=== PATIENT | female | born 1985 | race African-American/Black ===

== ENCOUNTER 2023-08-16 18:51 | Observation (INO) | payer BC, SELFPAY ==
[2023-08-16] VITALS (24 sets, daily range): BP systolic 100–126; BP diastolic 55–76; PULSE 75–105; RESP 16–22; TEMP 36.6–36.9; O2SAT 95–100
--- NOTE | ~2023-08-16 | CT_ITS ---
EXAMINATION: CT abdomen pelvis wo con DATE: 08/16/2023 21:00 INDICATION: flank pain eval for stone TECHNIQUE: Computed tomography (CT) of the abdomen and pelvis was performed without intravenous contr ast. Automated exposure control and iterative reconstruction technique were employed. The dose-length product was 797.17 mGy-cm. COMPARISON: None. FINDINGS: Lower thorax: Unremarkable Liver: Normal. Biliary/Gallbladder: Gallbladder is normal. No bile duct dilation. Pancreas: No mass or duct dilation. Spleen: Normal. Adrenals:No mass. Kidneys: No suspicious mass, obstructing stone, or hydronephrosis. Punctate nonobstructing right uppe r pole calcification. Simple right upper pole cyst. GI tract: No small or large bowel dilation. Normal appendix. Mesentery/Peritoneum: No ascites, mass, or free air. Retroperitoneum: No mass. Pelvis: Empty urinary bladder. Retroverted uterus. Normal bilateral ovaries. 3.5 cm simple right ovar sterling cyst which requires no additional evaluation at this time. Soft Tissues: Small, uncomplicated, fat-containing umbilical hernia. Bones: No acute osseous finding. IMPRESSION: No acute process detected in the abdomen or pelvis. Reviewed, dictated and finalized at location K.
--- NOTE | ~2023-08-16 | US_ITS ---
EXAMINATION: US pelvic complete DATE: 08/17/2023 08:48 INDICATION: Vaginal bleeding. Ovarian cyst. TECHNIQUE: Multiple transabdominal sonographic images of the pelvis were obtained. COMPARISON: CT abdomen and pelvis 08/16/2023 FINDINGS: The uterus measures 9.7 x 5.3 x 7.2 cm. There is no free fluid in the pelvis. The endometrial complex measures 8 mm in thickness. The right ovary measures 4.7 x 2.1 x 2.3 cm. The left ovary measures 4.5 x 2.4 x 2.5 cm. There is a 2.4 cm dominant follicle in left ovary. There is normal vascular flow in the ovaries. IMPRESSION: 1. Normal pelvis. Reviewed, dictated and finalized at location E. IMPRESSION: 1. Normal pelvis.
[2023-08-16 20:37] LABS: Basophils Absolute Auto 0.1 K/mm3 (0.0-0.1); Basophils Percent Auto 0.5 % (0.2-1.2); Eosinophils Absolute Auto 0.4 K/mm3 (0-0.3); Eosinophils Percent Auto 4.2 % (0-4.4); Immature Granulocyte Absolute 0.38 K/mm3 (0.00-0.031); Immature Granulocyte Percent A 3.6 % (0-0.5); Immature Platelet Fraction Pct 5.7 % (0.9-11.2); Lymphocytes Absolute Auto 3.37 K/mm3 (0.9-3.2); Lymphocytes Percent Auto 31.8 % (18.3-44.2); Mean Corpuscular HGB Conc 26.4 g/dl (32-36); Mean Corpuscular Hemoglobin 15.3 pg (26-34); Mean Corpuscular Volume 58.1 fl (80-100); Monocytes Absolute Auto 1.3 K/mm3 (0.1-0.6); Monocytes Percent Auto 11.8 % (2.6-8.5); Neutrophils Absolute Auto 5.1 K/mm3 (1.3-6.7); Neutrophils Percent Auto 48.1 % (45.5-73.1); Platelet Count Result 166 k/mm3 (150-375); Red Blood Count 3.46 M/mm3 (4.2-5.4); Red Cell Distribution Width 21.7 % (11.5-14.5); White Blood Count 10.6 K/mm3 (4.5-10.0)
[2023-08-16] MEDS: ONDANSETRON INJ 4 MG/2 ML VIAL IV PUSH (20:38)
[2023-08-16] MEDS: MORPHINE SULFATE (*CRX) 4 MG/ML INJ 2 MG IV PUSH (20:38)
[2023-08-16 20:48] LABS: Hematocrit 20.1 % (37.0-47.0); Hemoglobin 5.3 g/dL (12.0-15.0)
[2023-08-16 20:49] LABS: Anisocytosis 2+; Hypochromasia 2+; Large Platelets Present; Microcytosis 2+ (NORMAL); Platelet Estimate Adequate (Adequate)
[2023-08-16 20:50] LABS: Atypical Lymphocytes Present; Ovalocytes 1+; Schistocytes Rare; Stomatocytes 1+
[2023-08-16 20:53] LABS: Alanine Aminotransferase 11 U/L (6-35); Albumin Level 4.1 g/dL (3.5-5.1); Alkaline Phosphatase 60 U/L (38-126); Anion Gap 8 mmol/L (4-12); Aspartate Amino Transferase 23 U/L (14-36); Bilirubin,Total 0.4 mg/dL (0.2-1.3); Blood Urea Nitrogen 4 mg/dL (7-17); Calcium 8.9 mg/dL (8.4-10.2); Carbon Dioxide 25 mmol/L (22-30); Chloride 105 mmol/L (98-107); Estimated CRCL calculation 100 ml/min; Estimated Glomerular Filt Rate > 60; Glucose 97 mg/dL (65-110); Lipase 81 U/L (23-300); Potassium 3.4 mmol/L (3.4-5.0); Sodium 138 mmol/L (137-145)
[2023-08-16 20:55] LABS: Appearance Urine Clear (Clear); Bacteria Urine None Seen /hpf; Bilirubin Urine Negative (Negative); Blood Urine 2+ (Negative); Color Urine Yellow (Yellow); Glucose Urine UA Negative (Negative); Ketones Urine Trace mg/dL (Negative); Leukocyte Esterase Ur Trace LEU/UL (Negative); Need Manual Microscopic Reviewed; Nitrate Urine Negative (Negative); Protein Urine 1+ mg/dL (Negative); RBC Urine >100 /hpf (0-2); Specific Grav Ur 1.015 (1.001-1.035); Squamous Epithelial Cell Urine Occasional /hpf (Few); WBC Urine 0-5 /hpf (0-3); pH Urine 7.5 (5.0-9.0)
[2023-08-16 20:57] LABS: Add Urine Microscopic? YES
[2023-08-16 21:06] LABS: Basophils Percent Auto 0.4 % (0.2-1.2); Eosinophils Absolute Auto 0.4 K/mm3 (0-0.3); Eosinophils Percent Auto 3.3 % (0-4.4); Immature Granulocyte Absolute 0.39 K/mm3 (0.00-0.031); Immature Granulocyte Percent A 3.5 % (0-0.5); Lymphocytes Absolute Auto 3.21 K/mm3 (0.9-3.2); Lymphocytes Percent Auto 28.9 % (18.3-44.2); Mean Corpuscular HGB Conc 26.6 g/dl (32-36); Mean Corpuscular Hemoglobin 15.5 pg (26-34); Mean Corpuscular Volume 58.2 fl (80-100); Monocytes Absolute Auto 1.4 K/mm3 (0.1-0.6); Neutrophils Absolute Auto 5.7 K/mm3 (1.3-6.7); Neutrophils Percent Auto 50.9 % (45.5-73.1); Platelet Count Result 144 k/mm3 (150-375); Red Blood Count 3.23 M/mm3 (4.2-5.4); Red Cell Distribution Width 21.5 % (11.5-14.5); White Blood Count 11.1 K/mm3 (4.5-10.0)
[2023-08-16 21:09] LABS: Hematocrit 18.8 % (37.0-47.0)
[2023-08-16 21:10] LABS: Hypochromasia 2+; Platelet Estimate Slightly Decreased (Adequate)
[2023-08-16 21:11] LABS: Anisocytosis 2+; Atypical Lymphocytes Present; Large Platelets Present; Microcytosis 2+ (NORMAL); Ovalocytes 1+; Schistocytes Rare; Stomatocytes 1+
[2023-08-16 21:27] LABS: Alanine Aminotransferase 9 U/L (6-35); Albumin Level 3.8 g/dL (3.5-5.1); Alkaline Phosphatase 59 U/L (38-126); Anion Gap 7 mmol/L (4-12); Aspartate Amino Transferase 22 U/L (14-36); Bilirubin,Total 0.4 mg/dL (0.2-1.3); Blood Urea Nitrogen 4 mg/dL (7-17); Calcium 8.7 mg/dL (8.4-10.2); Carbon Dioxide 25 mmol/L (22-30); Chloride 106 mmol/L (98-107); Estimated CRCL calculation 88 ml/min; Estimated Glomerular Filt Rate > 60; Glucose 102 mg/dL (65-110); Lipase 77 U/L (23-300); Potassium 3.3 mmol/L (3.4-5.0); Sodium 138 mmol/L (137-145)
--- NOTE | 2023-08-16 21:49 | ED.GENADULT ---
HPI - General Adult General Chief complaint: Urogenital-Female Stated complaint: back pain Time Seen by Provider: 08/16/23 20:17 History of Present Illness HPI narrative: patient 37-year-old female who presents emergency department with chief complaint of flank pain. patient reports a cramping like feeling in her back similar to whenever she was and had contractions the patient states that she is currently on her. In going through about a pad an hour. Patient reports she has passed some clots at home reports she had previously she was anemic but has not had blood work checked in several years patient reports no prior history of kidney stones denies dysuria reports that she did have a low-grade fever couple of days ago but has not had a fever today. Related Data Home Medications Medication Instructions Recorded Confirmed No Home Medications 08/16/23 08/16/23 Allergies Allergy/AdvReac Type Severity Reaction Status Date / Time No Known Allergies Allergy Verified 08/16/23 20:39 Review of Systems Review of Systems: A 10 system review of systems was completed on the patient and is negative except for what is stated in the HPI. Nursing and ancillary documentation was reviewed. Exam Narrative: GENERAL: Well-appearing, well-nourished, and in no acute distress. HEAD: Normocephalic, atraumatic. EYES: PERRLA and EOMI. ENT: Nares clear, no rhinorrhea or epistaxis. Mucous membranes moist. NECK: Supple. CHEST: Clear to auscultation. No respiratory distress. HEART: Regular rate and rhythm. No murmur heard. Normal peripheral pulses. ABDOMEN: Soft, nontender, nondistended, normal active bowel sounds. : Guaiac-negative stool EXTREMITIES: Normal range of motion. No edema. SKIN: Warm, dry, no rash. NEURO: No focal deficits. Alert and oriented x3. PSYCH: Normal mood and affect. Course Vital Signs Vital signs: Vital Signs Temperature 36.6 C 08/16/23 18:54 Pulse Rate 105 H 08/16/23 18:54 Respiratory Rate 18 08/16/23 18:54 Blood Pressure 126/68 08/16/23 18:54 Pulse Oximetry 100 08/16/23 18:54 Oxygen Delivery Room Air 08/16/23 18:54 Temperature 36.6 C 08/16/23 18:54 Pulse Rate 95 08/16/23 21:47 Respiratory Rate 19 08/16/23 21:47 Blood Pressure 102/68 08/16/23 21:47 Pulse Oximetry 100 08/16/23 21:47 Oxygen Delivery Room Air 08/16/23 18:54 Medical Decision Making [facility] Narrative Medical decision making narrative: differential diagnosis includes ureterolithiasis, UTI, pyelonephritis, GI bleed, menorrhagia, laboratory studies were obtained on the patient showed a hemoglobin of 5.0 electrolytes are within normal limits urinalysis showed no evidence UTI test was negative CT abdomen pelvis showed no evidence of obstructing stone case was discussed with Dr. Short patient given TXA started on Provera patient be transfused 2 units packed red blood cells and patient will be admitted for further care Vital Signs Vital Signs: Vital Signs Temperature 36.6 C 08/16/23 18:54 Pulse Rate 105 H 08/16/23 18:54 Respiratory Rate 18 08/16/23 18:54 Blood Pressure 126/68 08/16/23 18:54 Pulse Oximetry 100 08/16/23 18:54 Oxygen Delivery Room Air 08/16/23 18:54 Temperature 36.6 C 08/16/23 18:54 Pulse Rate 95 08/16/23 21:47 Respiratory Rate 19 08/16/23 21:47 Blood Pressure 102/68 08/16/23 21:47 Pulse Oximetry 100 08/16/23 21:47 Oxygen Delivery Room Air 08/16/23 18:54 Lab Data 08/16/23 20:54 08/16/23 20:54 Labs: Lab Results 08/16/23 08/16/23 08/16/23 Range/Units 20:29 20:30 20:33 WBC 10.6 H (4.5-10.0) K/mm3 RBC 3.46 L (4.2-5.4) M/mm3 Hgb 5.3 L* (12.0-15.0) g/dL Hct 20.1 L* (37.0-47.0) % MCV 58.1 L (80-100) fl MCH 15.3 L (26-34) pg MCHC 26.4 L (32-36) g/dl RDW 21.7 H (11.5-14.5) % Plt Count 166 (150-375) k/mm3 MPV TNP
[2023-08-16] MEDS: TRANEXAMIC ACID 1,000MG/ISO100 1,000 MG/100 ML BAG 200 MG IVPB (22:40)
--- NOTE | 2023-08-16 22:46 | PC.NURSE ---
EDP DR. Douglass states to infuse TXA prior to blood administration.
[2023-08-16] MEDS: medroxyPROGESTERone ACETATE 10 MG TABLET PO (23:04)
--- NOTE | 2023-08-16 23:42 | PC.NURSE ---
Blood started at this time. Double checked by Henna Baxter RN
[2023-08-16] MEDS: TUBING, BLOOD SET 1 EACH XX (23:47)
[2023-08-16] MEDS: SODIUM CHLORIDE 0.9% IV 250 ML 30 ML IV CONT (23:47)
[2023-08-17] VITALS (19 sets, daily range): BP systolic 94–116; BP diastolic 53–78; PULSE 68–94; RESP 11–22; TEMP 36.3–36.7; O2SAT 99–100; BMI 32.9
[2023-08-17] MEDS: SODIUM CHLORIDE 0.9% IV 250 ML 100 ML (01:40)
[2023-08-17 06:40] LABS: Hemoglobin 7.2 g/dL (12.0-15.0)
--- NOTE | 2023-08-17 06:40 | PM.IMHP ---
H&P: HPI History of Present Illness Date/Time: 08/17/23 06:40 Chief Complaint: AUB Narrative: Celeste is a 37yo [id number], LMP 08/10/23 who presented to the ER overnight with complaints of flank pain and pelvic/back cramping. She is currently on her cycle and reports heavy bleeding; going through about a pad an hour. She reports she has passed some gumball sized clots at home and that she had previously been told she was anemic, but has not had blood work checked in several years. She has not seen a ASSISTANT EDITOR in many year. She was found to be anemic to hemoglobin of 5. CT scan was performed and was normal. She reports her cycles are starting to become more irregular. She think she didn't have a cycle in May, had a period at the end of June; heavy and lasted a full week. She then started this cycle a week ago. She does report increased facial hair growth as well. She was admitted to observation for blood transfusion. She has gotten 2 units and does report feeling better. She was started on Provera 10mg BID and her bleeding has almost completely stopped. She has ambulated and is feeling better. She is urinating without issue and passing gas. She has tolerated regular diet w/o issue. Vegetarian. She reports otherwise thinking she is healthy, but has not really seen any doctor in probably 4-5 years. Review of Systems Constitutional: Constitutional: Denies chills, Reports fatigue, Denies fever(s) and Denies headache(s) Eyes: Eyes: Denies change in vision ENT: Denies dizziness and Denies headache(s) Cardiovascular: Cardiovascular: Denies chest pain and Denies dyspnea Respiratory: Respiratory: Denies cough and Denies dyspnea Gastrointestinal: Gastrointestinal: Denies abdominal pain, Denies change in stool character, Denies nausea and Denies vomiting Genitourinary: Genitourinary: Reports menorrhagia, Reports pelvic pain, Denies vaginal discharge, Denies vaginal odor and Denies vaginal pruritus Neurologic: Denies headache(s) Psychiatric: Psychiatric: Denies anxiety and Denies depression [facility] Social History Social History Smoking status: Never smoker Second hand tobacco smoke exposure: No Alcohol intake: never Substance use: never Substance use type: does not use Do You Feel Safe in your Home?: Yes Lack of Transportation: No Lack of Food: Never True Current Housing: I Have Housing Concerned About Future Housing: No Difficulty Paying Gas/Electric Bills: No Difficulty Paying for Meds: No Currently Unemployed: No Education: Associate Degree Difficulty w/ Childcare or Family Care: No Spiritual care concerns: No Meds Home Medications and Allergies Home Medications Medication Instructions Recorded Confirmed Type No Home Medications 08/16/23 08/16/23 History Allergies Allergy/AdvReac Type Severity Reaction Status Date / Time No Known Allergies Allergy Verified 08/16/23 20:39 Vital Signs Vital Signs - 24 hr 08/16/23 18:54 08/16/23 20:50 08/16/23 21:14 Temperature 97.8 F Pulse Rate 105 H 86 88 Respiratory Rate 18 18 Blood Pressure 126/68 100/55 L 117/71 Pulse Oximetry 100 98 Oxygen Delivery Room Air 08/16/23 21:15 08/16/23 21:17 08/16/23 21:47 Temperature Pulse Rate 90 94 95 Respiratory Rate 19 Blood Pressure 110/68 113/65 102/68 Pulse Oximetry 100 Oxygen Delivery 08/16/23 22:47 08/16/23 23:42 08/16/23 21:27 Temperature 98.4 F Pulse Rate 80 79 Respiratory Rate 16 22 H Blood Pressure 118/76 105/73 Pulse Oximetry 98 96 98 Oxygen Delivery 08/16/23 21:31 08/16/23 21:32 08/16/23 21:45 Temperature Pulse Rate Respiratory Rate Blood Pressure 102/68 Pulse Oximetry 100 99 100 Oxygen Delivery 08/16/23 22:00 08/16/23 22:15 08/16/23 22:30 Temperature Pulse Rate Respiratory Rate Blood Pressure Pulse Oximetry 100 95 95 Oxygen Delivery 08/16/23 23:0
[2023-08-17] MEDS: medroxyPROGESTERone ACETATE 10 MG TABLET PO (08:05)
[2023-08-17] MEDS: IRON SUCROSE COMPLEX 500 MG in SODIUM CHLORIDE 0.9% IV 250 ML 79 MG IVPB (09:24)
[2023-08-17 11:17] LABS: Hematocrit 25.7 % (37.0-47.0); Hemoglobin 7.7 g/dL (12.0-15.0)
--- NOTE | 2023-08-17 12:32 | PM.GYNPNOP ---
SCRAP WORKER - A/P Assessment and plan (1) Anemia: Code(s): D64.9 - Anemia, unspecified Status: Acute (2) Vaginal bleeding: Code(s): N93.9 - Abnormal uterine and vaginal bleeding, unspecified Status: Acute Plan - SCRAP WORKER US normal - H/H danyelle appropriate - Continue Provera 10mg BID, rx sent in - Once Venofer has complete transfusing, will discharge home - ER return precautions - Will f/u outpatient to discuss further treatment options Time Spent With Patient Time: Total time spent is greater than 50% in coordination of care (as documented) at patient's floor/unit and/or counseling patient: Time with patient: less than 15 minutes SCRAP WORKER- PN:Subj Post-Op Subjective Date/time seen: 08/17/23 12:32 Interval history: Bleeding still remains very light. Has tolerated regular diet. Ambulated w/o issue, no symptoms of anemia. s/p 2 u pRBC; getting Venofer now. SCRAP WORKER US was performed. Labs improved; H/H now 7.7/25.7. Exam Const: General: cooperative, comfortable, no acute distress and obese Resp: Effort & Inspection: normal respiratory effort : Other: no bleeding on pad Skin: General skin exam: normal color Neuro: General: patient oriented x3 Extrem: General: normal to inspection Psych: Appearance: grossly normal Affect: normal affect Attitude: cooperative SCRAP WORKER - PN: Obj Data Vital Signs Vital Signs: Vital Signs - 24 hr 08/16/23 18:54 08/16/23 20:50 08/16/23 21:14 Temperature 97.8 F Pulse Rate 105 H 86 88 Respiratory Rate 18 18 Blood Pressure 126/68 100/55 L 117/71 Pulse Oximetry 100 98 Oxygen Delivery Room Air Fraction of Inspired Oxygen 08/16/23 21:15 08/16/23 21:17 08/16/23 21:47 Temperature Pulse Rate 90 94 95 Respiratory Rate 19 Blood Pressure 110/68 113/65 102/68 Pulse Oximetry 100 Oxygen Delivery Fraction of Inspired Oxygen 08/16/23 22:47 08/16/23 23:42 08/16/23 21:27 Temperature 98.4 F Pulse Rate 80 79 Respiratory Rate 16 22 H Blood Pressure 118/76 105/73 Pulse Oximetry 98 96 98 Oxygen Delivery Fraction of Inspired Oxygen 08/16/23 21:31 08/16/23 21:32 08/16/23 21:45 Temperature Pulse Rate Respiratory Rate Blood Pressure 102/68 Pulse Oximetry 100 99 100 Oxygen Delivery Fraction of Inspired Oxygen 08/16/23 22:00 08/16/23 22:15 08/16/23 22:30 Temperature Pulse Rate Respiratory Rate Blood Pressure Pulse Oximetry 100 95 95 Oxygen Delivery Fraction of Inspired Oxygen 08/16/23 23:06 08/16/23 23:15 08/16/23 23:16 Temperature Pulse Rate 79 78 75 Respiratory Rate Blood Pressure 112/64 Pulse Oximetry Oxygen Delivery Fraction of Inspired Oxygen 08/16/23 23:42 08/16/23 23:46 08/16/23 23:50 Temperature 98.2 F 97.9 F Pulse Rate 79 82 79 Respiratory Rate 20 20 18 Blood Pressure 111/72 106/71 Pulse Oximetry 98 98 100 Oxygen Delivery Fraction of Inspired Oxygen 08/16/23 23:55 08/16/23 23:45 08/16/23 23:46 Temperature 98.1 F Pulse Rate 77 79 79 Respiratory Rate 17 18 18 Blood Pressure 102/72 111/72 Pulse Oximetry 100 100 100 Oxygen Delivery Fraction of Inspired Oxygen 08/16/23 23:51 08/16/23 23:56 08/17/23 00:00 Temperature Pulse Rate 78 77 79 Respiratory Rate 16 18 18 Blood Pressure 106/71 102/72 Pulse Oximetry 100 100 100 Oxygen Delivery Fraction of Inspired Oxygen 08/17/23 00:01 08/17/23 00:06 08/17/23 00:11 Temperature Pulse Rate 73 78 71 Respiratory Rate 11 L 22 H 22 H Blood Pressure 111/78 111/70 107/65 Pulse Oximetry 99 100 100 Oxygen Delivery Fraction of Inspired Oxygen 08/17/23 00:15 08/17/23 00:16 08/17/23 00:21 Temperature Pulse Rate 72 69 69 Respiratory Rate 20 20 20 Blood Pressure 103/65 103/61 Pulse Oximetry 100 100 100 Oxygen Delivery Fraction of Inspired Oxygen 08/17/23 00:30 08/17/23 00:41 08/17/23 00:53 Temperature 98.0 F 97.3 F L Pulse Rate 75 81 94 Re
--- NOTE | 2023-08-18 14:05 | P.DS_ITS ---
DS: Admitting Diagnosis Discharge Date 08/17/23 Admitting Diagnosis Anemia Menorrhagia DS: Discharge Diagnosis Discharge Diagnosis (1) Anemia: Code(s): D64.9 - Anemia, unspecified Status: Acute (2) Vaginal bleeding: Code(s): N93.9 - Abnormal uterine and vaginal bleeding, unspecified Status: Acute DS: Summary Hospital Course Hospital Course: Celeste was admitted from the ER after hgb was noted to be 5. She was given a dose of TXA and transfused 2 units pRBC. She was started on Provera 10mg BID. Symptomatically she felt improved after the 2 units of pRBC. On HD #1, her bleeding had slowed significantly. She was also transfused venofer 500mg IV once. COMPONENT PREP OPERATOR US was performed and showed no major abnormalities. She was discharged home in a stable condition. Hgb danyelle to 7.7. She was discharged home on Provera and will f/u outpatient. Status at Discharge Functional status at discharge: independent ambulation Overall status at discharge: patient is progressing back to baseline Time Spent with Patient Time attestation: Total time spent providing and/or coordinating discharge services: Time spent: Less than 30 minutes Exam Const: General: cooperative, comfortable, no acute distress and obese Resp: Effort & Inspection: normal respiratory effort : Other: no bleeding on pad Skin: General skin exam: normal color Neuro: General: patient oriented x3 Extrem: General: normal to inspection Psych: Appearance: grossly normal Affect: normal affect Attitude: cooperative Discharge Plan Discharge Attending physician on discharge: Francy Short Consulting providers: Slava Barber; Satnam Srivastava V. Discharging Clinician: Francy Short Anticipated Discharge Date/Time: 08/17/23 15:00 Patient Disposition: Home, Self-Care Activity: as tolerated Diet: regular Patient Instructions: Anemia (DC) Stand Alone Forms: General Discharge Information Follow-up/Referrals: Francy Short MD [Physician] - Call for Appointment Discharge Medications: New medroxyprogesterone 10 mg Tablet 10 mg PO Q12HR Qty: 90 1RF acetaminophen 325 mg Tablet 650 mg PO Q4H PRN (Reason: Mild Pain (1-3) Or Fever) Qty: 60 0RF Date of admission: 08/16/23 23:18 Primary Care Provider: PHYSICIAN NOT ON STAFF,NONSTAFF Admitting Provider: Francy Short Attending physician on admission: Francy Short Condition: Stable
== END 2023-08-17 14:32 | disposition home or self-care (01) ==
LOC: ANHED 22:23 → ANH3MEDSUR 08-17 00:32
PROVIDERS: Admitting Provider Obstetrics & Gynecology; Emergency Provider Emergency Medicine; Visit Provider Obstetrics & Gynecology
DX: D64.9 Anemia, unspecified (principal); N93.9 Abnormal uterine and vaginal bleeding, unspecified
CPT/HCPCS: 36415; 36430; 74176; 76856; 80053; 81001; 81025; 83690; 85014; 85018; 85025; 85055; 86850; 86900; 86901; 86923; 96361; 96365; 96374; 96375; 99285; A9270; G0378; G0379; J1756; J2270; J2405; J7050; P9016